=== PATIENT | male | born 1940 | race Caucasian/White ===

== ENCOUNTER → 2019-09-12 | Outpatient (CLI) | payer MEDICARE, OTHER ==
[~2019-09-12] MED LIST: AMLO10 PO; ASPI81CH PO; ATOR40TA PO; CENTRUM SILVER1 EAC2 PO; CEPH500 PO; LISHYD2025 PO; MULVITMINF; NAPR500 PO; NIAC500ER; NIACIN ER500 MG PO; NISO10ER; Omeprazole20 M1 PO; SULTRIDS PO; [UNRECOGNIZED DRUG - REMARK]
== END | disposition home or self-care (01) ==
LOC: LAB SHORT 14:56 → PLD 14:56
DX: D22.39 Melanocytic nevi of other parts of face (principal)
CPT/HCPCS: 88305

== ENCOUNTER → 2019-11-15 | Outpatient (CLI) | payer MEDICARE, OTHER ==
[~2019-11-15] MED LIST changes: -ASPI81CH PO; +Aspir 8181 MG PO; +EUTHYROX75 MC1 PO; -LISHYD2025 PO; +ZESTORETIC 20-1 EAC2 PO
[2019-11-15 11:42] LABS: BASOPHILS ABSOLUTE AUTO 0.06 K/mm3 (0.00-0.23); BASOPHILS PERCENT AUTO 1 % (0-2); EOSINOPHILS ABSOLUTE AUTO 0.11 K/mm3 (0.00-0.68); EOSINOPHILS PERCENT AUTO 1 % (0-6); Hematocrit 45.7 % (37.0-53.0); Hemoglobin 16.2 g/dL (13.5-17.5); IMMATURE GRAN ABSOLUTE AUTO 0.05 K/mm3 (0.00-0.10); IMMATURE GRAN PERCENT AUTO 1 % (0-1); LYMPHOCYTES ABSOLUTE AUTO 1.17 K/mm3 (0.84-5.20); LYMPHOCYTES PERCENT AUTO 11 % (21-46); MONOCYTES ABSOLUTE AUTO 1.12 K/mm3 (0.16-1.47); MONOCYTES PERCENT AUTO 11 % (4-13); Mean Corpuscular HGB 32.7 pg (26.0-34.0); Mean Corpuscular HGB Conc 35.4 g/dL (31.5-36.5); Mean Corpuscular Volume 92 fL (80-100); Mean Platelet Volume 10.2 fL (9.1-12.4); NEUTROPHILS PERCENT AUTO 76 % (41-73); Platelet Count 284 K/mm3 (150-400); RDW Coefficient Variation 12.9 % (11.7-14.2); RDW Standard Deviation 43.6 fL (35.1-46.3); Red Blood Cell Count 4.95 M/mm3 (4.30-5.90); White Blood Cell Count 10.31 K/mm3 (4.00-11.30)
[2019-11-15 12:06] LABS: Alanine Aminotransfer (ALT/SGP 25 U/L (12-78); Albumin, Blood 4.2 g/dL (3.4-5.0); Albumin/Globulin Ratio 1.1 (0.8-1.8); Alk Phos 117 U/L (40-126); Anion Gap 9 mmol/L (6-16); Aspartate Aminotrans (AST/SGOT 19 U/L (12-37); Blood Urea Nitrogen 16 mg/dL (8-24); Bun/Creatinine Ratio 17.8 (12.0-20.0); CO2, Blood 26 mmol/L (21-32); Chloride, Blood 100 mmol/L (98-108); Globulin, Blood 3.9 g/dL (2.2-4.0); Glomerular Filtration Rate >60 (60-); Glucose, Blood 108 mg/dL (70-99); Potassium, Blood 3.9 mmol/L (3.5-5.5); Sodium, Blood 135 mmol/L (136-145); Thyroid Stimulating Hormone 2.905 uIU/mL (0.360-4.800); Total Protein, Blood 8.1 g/dL (6.4-8.2); Troponin I 0.077 ng/mL (0.000-0.040)
== END | disposition home or self-care (01) ==
LOC: LAB EV 11:36 → LAB SHORT 11:36
PROVIDERS: Physician Assistant Medical
DX: R53.83 Other fatigue (principal)
CPT/HCPCS: 80053; 84443; 84484; 85025

== ENCOUNTER 2019-11-17 18:30 | Observation (INO) | payer MEDICARE, OTHER ==
[~2019-11-17] VITALS: Ht 182.9 cm; Wt 95.7 kg
[~2019-11-17 18:30] MED LIST changes: -AMLO10 PO; -ATOR40TA PO; -Aspir 8181 MG PO; -EUTHYROX75 MC1 PO; -Omeprazole20 M1 PO; -ZESTORETIC 20-1 EAC2 PO
[2019-11-17 19:41] LABS: BASOPHILS ABSOLUTE AUTO 0.06 K/mm3 (0.00-0.23); BASOPHILS PERCENT AUTO 1 % (0-2); EOSINOPHILS ABSOLUTE AUTO 0.11 K/mm3 (0.00-0.68); EOSINOPHILS PERCENT AUTO 1 % (0-6); IMMATURE GRAN ABSOLUTE AUTO 0.02 K/mm3 (0.00-0.10); IMMATURE GRAN PERCENT AUTO 0 % (0-1); LYMPHOCYTES ABSOLUTE AUTO 1.49 K/mm3 (0.84-5.20); LYMPHOCYTES PERCENT AUTO 17 % (21-46); MONOCYTES ABSOLUTE AUTO 1.08 K/mm3 (0.16-1.47); MONOCYTES PERCENT AUTO 12 % (4-13); Mean Corpuscular HGB Conc 34.1 g/dL (31.5-36.5); Mean Corpuscular Volume 94 fL (80-100); NEUTROPHILS ABSOLUTE AUTO 5.99 K/mm3 (1.96-9.15); NEUTROPHILS PERCENT AUTO 69 % (41-73); Platelet Count 254 K/mm3 (150-400); RDW Coefficient Variation 12.6 % (11.7-14.2); RDW Standard Deviation 43.5 fL (35.1-46.3); Red Blood Cell Count 4.69 M/mm3 (4.30-5.90); White Blood Cell Count 8.75 K/mm3 (4.00-11.30)
[2019-11-17 20:05] LABS: Alanine Aminotransfer (ALT/SGP 20 U/L (12-78); Albumin, Blood 3.6 g/dL (3.4-5.0); Alk Phos 106 U/L (50-136); Anion Gap 8 mmol/L (6-16); Aspartate Aminotrans (AST/SGOT 17 U/L (12-37); Blood Urea Nitrogen 16 mg/dL (8-24); Bun/Creatinine Ratio 21.2 (12.0-20.0); CO2, Blood 25 mmol/L (21-32); Calcium, Blood 9.1 mg/dL (8.5-10.1); Chloride, Blood 105 mmol/L (98-108); Creatinine, Blood 0.75 mg/dL (0.60-1.20); Globulin, Blood 3.6 g/dL (2.2-4.0); Glomerular Filtration Rate >60 (60-); Glucose, Blood 104 mg/dL (70-99); Potassium, Blood 3.7 mmol/L (3.5-5.5); Sodium, Blood 138 mmol/L (136-145); Total Protein, Blood 7.2 g/dL (6.4-8.2); Troponin I <0.015 ng/mL (0.000-0.040)
[2019-11-17] MEDS ORDERED: ATOR40TA PO ×2 (20:37)
[2019-11-17] MEDS ORDERED: EUTHYROX75 MC1 PO ×2 (20:37)
[2019-11-17] MEDS ORDERED: ZESTORETIC 20-1 EAC2 PO ×2 (20:38)
[2019-11-17] MEDS ORDERED: AMLO10 PO ×2 (20:38)
[2019-11-17] MEDS ORDERED: Aspir 8181 MG PO ×2 (20:40)
[2019-11-17] MEDS ORDERED: Omeprazole20 M1 PO ×2 (20:53)
--- NOTE | 2019-11-18 04:37 | NUR ---
SHIFT SUMMARY ADMITTED FOR OUTPATIENT ELEVATED TROPONINS THIS SHIFT, THEY NORMALIZED IN THE ER HERE. FULL CODE. HANDOFF RECEIVED FROM ER NURSE EDILSON. PT ORIENTED TO MED FLOOR. HE HAD HAD FATIGUE & LIGHT HEADEDNESS FOR 4 DAYS, BUT NO CHEST PAIN. HE WILL UNDERGO A STRESS TEST TODAY. DEPENDING ON THE RESULTS, PERHAPS A CARDIOLOGY CONSULT. HE HAS HAD NO CAFFEINE, SODA, OR CHOCOLATE SINCE ADMIT. LABS & VITALS ARE UNREMARKABLE. HE'S NPO SINCE 3 AM, EXCEPT FOR ICE AND MEDS.
--- NOTE | 2019-11-18 18:37 | NUR ---
shift summary patient is pleasant, alert and oriented independent. he denies chest pain. he is awaiting a one day protocol stress test in the morning. he will be npo at midnight and the doctor is also awaiting a coronary risk panel while fasting.
--- NOTE | 2019-11-18 22:47 | NUR ---
2000 PT GIVEN SHOWER THIS SHIFT AFTER PATIENT WAS NOTED TO HAVE VERY STRONG BODY ODOR AND WEARING DIRTY CLOTHES FROM HOME; DIRK AGUIRRE ASSISTED WITH PT TOLERATING ACTIVITY WELL. 0 PT RESTING COMFORTABLY IN BED.
--- NOTE | 2019-11-19 01:12 | NUR ---
PT RESTING COMFORTABLY IN BED; PT NPO SINCE MIDNIGHT FOR HEART STRESS TEST AM.
--- NOTE | 2019-11-19 03:46 | NUR ---
SHIFT SUMMARY: 79 Y/O MALE RESTED COMFORTABLY ALL SHIFT; DENIES PAIN OR NAUSEA; TELEMETRY REFLECTS NSR WITH OCCASIONAL PVC WITH HEART RATE 80; PT NPO FOR HEART STRESS TEST AM; ALERT AND ORIENTED X 4; BED LOW POSITION WITH CALL LIGHT AT SIDE.
[2019-11-19 05:27] LABS: CHOL/HDL RATIO 3.7; Cholesterol 152 mg/dL (50-200); HDL Cholesterol 41 mg/dL (>39); LDL/HDL RATIO 2.2; Low Density Lipoprotein Chol 89 mg/dL (0-110); Triglycerides 112 mg/dL (30-160); Very Low Density Lipoprot Chol 22 mg/dL (6-32)
--- NOTE | 2019-11-19 15:07 | NUR ---
DISCHARGE SUMMARY DISCHARGE INSTRUCTIONS GIVEN TO THE PATIENT. STRESS TEST ORDER AND FACE SHEET FAXED TO [facility]. PATIENT FOLLOW UPSENT TO [facility]. INSTRUCTIONS TALKED OVER WITH THE PATIENT. IV REMOVED. PATIENT WALKED OUT TO HIS VEHICLE.
== END 2019-11-19 13:52 | disposition home or self-care (01) ==
LOC: ER 18:30 → MEDS 18:31
PROVIDERS: Internal Medicine; Physician Assistant; ADMIT Internal Medicine
DX: Z11.59 Encounter for screening for other viral diseases (principal); R53.83 Other fatigue; R06.02 Shortness of breath; I10 Essential (primary) hypertension; R79.89 Other specified abnormal findings of blood chemistry; I49.3 Ventricular premature depolarization; E78.5 Hyperlipidemia, unspecified; K21.9 Gastro-esophageal reflux disease without esophagitis; Z79.82 Long term (current) use of aspirin; Z79.899 Other long term (current) drug therapy; Z87.891 Personal history of nicotine dependence
CPT/HCPCS: 36415; 71046; 80053; 80061; 83880; 84484; 85025; 93005; 93010; 93306; 96372; 99285-25; A9270-GY; G0378; J0706; J1650; J2785; U0003

== ENCOUNTER → 2020-03-18 | Outpatient (CLI) | payer MEDICARE, OTHER ==
[~2020-03-18] MED LIST changes: +AMLO10 PO; +ATOR40TA PO; +Aspir 8181 MG PO; +EUTHYROX75 MC1 PO; +Omeprazole20 M1 PO; +ZESTORETIC 20-1 EAC2 PO
== END | disposition home or self-care (01) ==
LOC: LAB SHORT 10:20 → PLD 10:20
DX: D22.5 Melanocytic nevi of trunk (principal); L81.4 Other melanin hyperpigmentation
CPT/HCPCS: 88305

== ENCOUNTER 2021-08-12 17:32 | Emergency (ER) | payer MEDICARE, OTHER ==
[~2021-08-12] VITALS: Ht 182.9 cm; Wt 102.1 kg
[2021-08-12 18:29] LABS: BASOPHILS ABSOLUTE AUTO 0.08 K/mm3 (0.00-0.23); BASOPHILS PERCENT AUTO 1 % (0-2); EOSINOPHILS ABSOLUTE AUTO 0.33 K/mm3 (0.00-0.68); EOSINOPHILS PERCENT AUTO 3 % (0-6); Hematocrit 44.2 % (37.0-53.0); Hemoglobin 15.7 g/dL (13.5-17.5); IMMATURE GRAN ABSOLUTE AUTO 0.03 K/mm3 (0.00-0.10); IMMATURE GRAN PERCENT AUTO 0 % (0-1); LYMPHOCYTES ABSOLUTE AUTO 1.39 K/mm3 (0.84-5.20); LYMPHOCYTES PERCENT AUTO 13 % (21-46); MONOCYTES ABSOLUTE AUTO 1.34 K/mm3 (0.16-1.47); MONOCYTES PERCENT AUTO 12 % (4-13); Mean Corpuscular HGB 32.6 pg (26.0-34.0); Mean Corpuscular HGB Conc 35.5 g/dL (31.5-36.5); Mean Corpuscular Volume 92 fL (80-100); Mean Platelet Volume 10.2 fL (9.1-12.4); NEUTROPHILS ABSOLUTE AUTO 7.84 K/mm3 (1.96-9.15); NEUTROPHILS PERCENT AUTO 71 % (41-73); Platelet Count 283 K/mm3 (150-400); RDW Coefficient Variation 13.2 % (11.7-14.2); RDW Standard Deviation 44.6 fL (35.1-46.3); Red Blood Cell Count 4.81 M/mm3 (4.30-5.90); White Blood Cell Count 11.01 K/mm3 (4.00-11.30)
[2021-08-12 18:36] LABS: Source, Urine Clean Catch
[2021-08-12 18:39] LABS: Appearance, Urine Clear (Clear); Bilirubin, Urine Neg (Neg); Blood, Urine Neg (Neg); Color, Urine Yellow (P-Yellow); Glucose Qualitative, Urine Neg (Neg); Ketones, Urine Neg (Neg); Leukocyte Esterase, Urine Neg (Neg); Nitrite, Urine Neg (Neg); Protein, Urine 1+ (Neg); Specific Gravity, Urine 1.025 (1.003-1.022); Urobilinogen, Urine 1+ (Normal)
[2021-08-12 18:52] LABS: Alanine Aminotransfer (ALT/SGP 27 U/L (12-78); Albumin, Blood 3.8 g/dL (3.4-5.0); Alk Phos 114 U/L (50-136); Anion Gap 5 mmol/L (6-16); Aspartate Aminotrans (AST/SGOT 17 U/L (12-37); Bilirubin, Total 0.6 mg/dL (0.1-1.0); Blood Urea Nitrogen 26 mg/dL (8-24); Bun/Creatinine Ratio 31.1 (12.0-20.0); CO2, Blood 26 mmol/L (21-32); Calcium, Blood 9.7 mg/dL (8.5-10.1); Chloride, Blood 105 mmol/L (98-108); Creatinine, Blood 0.84 mg/dL (0.60-1.20); Globulin, Blood 3.8 g/dL (2.2-4.0); Glomerular Filtration Rate >60 (60-); Glucose, Blood 113 mg/dL (70-99); Magnesium, Blood 2.1 mg/dL (1.6-2.4); Potassium, Blood 3.8 mmol/L (3.5-5.5); Sodium, Blood 136 mmol/L (136-145); Total Protein, Blood 7.6 g/dL (6.4-8.2)
== END 2021-08-12 21:33 | disposition home or self-care (01) ==
LOC: ER 17:32
PROVIDERS: Physician Assistant
DX: R55 Syncope and collapse (principal); R42 Dizziness and giddiness; I11.9 Hypertensive heart disease without heart failure; E78.5 Hyperlipidemia, unspecified; K21.9 Gastro-esophageal reflux disease without esophagitis; Z79.82 Long term (current) use of aspirin; Z79.899 Other long term (current) drug therapy; Z87.891 Personal history of nicotine dependence
CPT/HCPCS: 36415; 71045; 80053; 83735; 84484; 85025; 93005; 93010; 99284-25

== ENCOUNTER 2021-10-25 19:17 | Emergency (ER) | payer MEDICARE, OTHER ==
[~2021-10-25] VITALS: Ht 182.9 cm; Wt 102.1 kg
[2021-10-25] MEDS ORDERED: CEPH500 PO (21:28)
== END 2021-10-25 21:43 | disposition home or self-care (01) ==
LOC: ER 19:17
DX: L03.313 Cellulitis of chest wall (principal); I10 Essential (primary) hypertension; E78.5 Hyperlipidemia, unspecified; K21.9 Gastro-esophageal reflux disease without esophagitis; Z87.891 Personal history of nicotine dependence
CPT/HCPCS: 76604; A9270

== ENCOUNTER 2023-01-19 12:28 | Day surgery (SDC) | payer MEDICARE, OTHER ==
[~2023-01-19] VITALS: Ht 182.9 cm; Wt 98.2 kg
[~2023-01-19 12:28] MED LIST changes: +METO25ER PO
[2023-01-19 15:37] VITALS: BP 139/79
--- NOTE | 2023-01-19 15:42 | NUR ---
01/19/23 1542 Kali Vásquez IV REMOVED INTACT. SITE WNL.
== END 2023-01-19 15:35 | disposition home or self-care (01) ==
LOC: ORSCSDS 12:28
PROVIDERS: Orthopaedic Surgery
PROC: 01N50ZZ Release Median Nerve, Open Approach (ICD-10-PCS; principal; 2023-01-19 14:00)
DX: G56.01 Carpal tunnel syndrome, right upper limb (principal); I10 Essential (primary) hypertension; E78.5 Hyperlipidemia, unspecified; E03.9 Hypothyroidism, unspecified; I50.9 Heart failure, unspecified; E66.9 Obesity, unspecified; Z68.29 Body mass index [BMI] 29.0-29.9, adult; Z79.82 Long term (current) use of aspirin; Z79.899 Other long term (current) drug therapy; Z87.891 Personal history of nicotine dependence
CPT/HCPCS: J0690; J2704; J3010; J7120

== ENCOUNTER → 2024-05-26 | Outpatient (CLI) | payer MEDICARE, OTHER ==
[2024-05-26 18:40] LABS: BASOPHILS ABSOLUTE AUTO 0.05 K/mm3 (0.00-0.23); BASOPHILS PERCENT AUTO 1 % (0-2); EOSINOPHILS PERCENT AUTO 2 % (0-6); Hematocrit 39.2 % (37.0-53.0); Hemoglobin 13.3 g/dL (13.5-17.5); IMMATURE GRAN ABSOLUTE AUTO 0.03 K/mm3 (0.00-0.10); IMMATURE GRAN PERCENT AUTO 0 % (0-1); LYMPHOCYTES ABSOLUTE AUTO 1.38 K/mm3 (0.84-5.20); LYMPHOCYTES PERCENT AUTO 15 % (21-46); MONOCYTES ABSOLUTE AUTO 1.24 K/mm3 (0.16-1.47); MONOCYTES PERCENT AUTO 13 % (4-13); Mean Corpuscular HGB 31.2 pg (26.0-34.0); Mean Corpuscular HGB Conc 33.9 g/dL (31.5-36.5); Mean Corpuscular Volume 92 fL (80-100); Mean Platelet Volume 10.1 fL (9.1-12.4); NEUTROPHILS ABSOLUTE AUTO 6.36 K/mm3 (1.96-9.15); NEUTROPHILS PERCENT AUTO 69 % (41-73); Platelet Count 279 K/mm3 (150-400); RDW Coefficient Variation 13.4 % (11.7-14.2); Red Blood Cell Count 4.26 M/mm3 (4.30-5.90); White Blood Cell Count 9.26 K/mm3 (4.00-11.30)
[2024-05-26 18:59] LABS: Albumin, Blood 3.2 g/dL (3.4-5.0); Albumin/Globulin Ratio 0.8 (0.8-1.8); Bilirubin, Total 0.8 mg/dL (0.1-1.0); Bun/Creatinine Ratio 19.6 (12.0-20.0); Calcium, Blood 8.4 mg/dL (8.5-10.1); Creatinine, Blood 0.92 mg/dL (0.60-1.20); Free Thyroxine 1.4 ng/dL (0.70-1.60); Globulin, Blood 3.9 g/dL (2.2-4.0); Potassium, Blood 3.5 mmol/L (3.5-5.5); Thyroid Stimulating Hormone 5.375 uIU/mL (0.360-4.800); Total Protein, Blood 7.1 g/dL (6.4-8.2)
== END | disposition home or self-care (01) ==
LOC: LAB SHORT 18:36
PROVIDERS: Emergency Medicine
DX: R60.0 Localized edema (principal); R00.0 Tachycardia, unspecified
CPT/HCPCS: 80053; 83880; 84439; 84443; 85025

== ENCOUNTER 2024-11-23 06:18 | Day surgery (SDC) | payer MEDICARE, OTHER ==
[2024-11-23] VITALS (7 sets, daily range): BP systolic 100–135; BP diastolic 54–82
[~2024-11-23] VITALS: Ht 182.9 cm; Wt 91.0 kg
[~2024-11-23 06:18] MED LIST changes: +AMIODARONE HCL400 M2 PO; +ELIQUIS5 M3 PO; +ENTRESTO 24 MG1 EACH PO; +FURO20 PO; +FUROSEMIDE20 MG PO; +JARDIANCE10 MG PO; +KLOR-CON 1010 ME9 PO; +LOSARTAN-HCTZ1 EACH PO; +OMEP20ER PO; -Omeprazole20 M1 PO; +POTA10T PO; +SPIR25 PO
[2024-11-23] MEDS ORDERED: NS 1,000 ML IV ONE (06:49)
--- NOTE | 2024-11-23 07:16 | NUR ---
PT TOLERATED SYNCHRONIZED CARDIOVERSION WELL.
--- NOTE | 2024-11-23 07:32 | NUR ---
PT SITTING UP DRINKING COFFEE. CALL LIGHT IN REACH.
--- NOTE | 2024-11-23 07:35 | NUR ---
PT ON ROOM AIR.
--- NOTE | 2024-11-23 07:48 | NUR ---
PT'S NEPHEW IN ROOM TO VISIT.
--- NOTE | 2024-11-23 07:56 | NUR ---
ZIO PATCH PLACED.
--- NOTE | 2024-11-23 08:30 | NUR ---
DISCHARGE INSTRUCTIONS WERE REVIEWED AND ALL QUESTIONS ANSWERED. 20 G IV WAS DISCONTINUED FROM RIGHT WRIST WITH INTACT CANNULA. PT WAS ESCORTED OUT VIA WHEELCHAIR ESCORT.
[2024-11-23] MEDS ORDERED: Propofol 10mg/ml 20 ml Vial (Procedural) IV ONE (13:32)
== END 2024-11-23 23:00 | disposition home or self-care (01) ==
LOC: MHTC 06:18
DX: I48.19 Other persistent atrial fibrillation (principal); I11.0 Hypertensive heart disease with heart failure; I50.20 Unspecified systolic (congestive) heart failure; I25.10 Atherosclerotic heart disease of native coronary artery without angina pectoris; E78.5 Hyperlipidemia, unspecified; Z79.01 Long term (current) use of anticoagulants; Z79.82 Long term (current) use of aspirin; Z79.899 Other long term (current) drug therapy; Z79.890 Hormone replacement therapy
CPT/HCPCS: 92960; 93005; 93010; 93246; J2704; J7030